=== PATIENT | female | born 1985 | race African-American/Black ===

== ENCOUNTER 2020-06-27 06:01 | Inpatient (IN) ==
[2020-06-27] MEDS ORDERED: ONDANSETRON 4 MG/2 ML VIAL IV PRN ×2 (06:10→10:16)
[2020-06-27] MEDS ORDERED: CITRIC ACID/SODIUM CITRATE 30 ML UDCUP PO ONE (06:14)
[2020-06-27] MEDS ORDERED: ceFAZolin 3,000 MG in SYRINGE 1 EACH IV ONE (06:30)
[2020-06-27] MEDS ORDERED: OXYTOCIN/LR 20 UNIT/1,000 ML BAG IV SCH (06:30)
[2020-06-27] MEDS ORDERED: FAMOTIDINE 20 MG/2 ML VIAL IV SCH (06:30)
[2020-06-27 06:49] LABS: Basophils % 0.2 % (0.0-0.8); Eosinophils # 0.1 10*3/uL (0.0-0.87); Eosinophils % 1.1 % (0.00-10.9); Hematocrit 38.2 VOL% (35.7-47.0); Hemoglobin 12.2 GM/DL (12.0-16.0); Immature Granulocytes % 0.3 %; Immature Granulocytes Absolute 0.03 #; Lymphocytes # 2.1 10*3/uL (1.4-4.0); Lymphocytes % 22.1 % (21.3-54.2); Mean Corpuscular HGB Conc 31.9 GM/DL (32-36); Mean Corpuscular Volume 76.6 FL (87-102); Mean Platelet Volume 10.5 FL (9.6-12.0); Monocytes % 8.7 % (1.7-12.7); Neutrophils % 67.6 % (38.7-73.9); Platelet Count 317 T/CUMM (130-400); Red Blood Count 4.99 MC/CUMM (3.8-5.5); White Blood Count 9.7 T/CUMM (4-12)
[2020-06-27 07:11] LABS: Albumin 2.7 G/DL (3.4-5.0); Bilirubin,Total 0.5 MG/DL (0.2-1.0); Calcium 8.9 MG/DL (8.5-10.1); Total Protein 7.9 G/DL (6.4-8.3)
[2020-06-27] MEDS: LACTATED RINGERS 1,000 ML IV SCH ×3 (07:30→18:10)
[2020-06-27] MEDS ORDERED: miSOPROStoL 200 MCG TABLET ONE (08:09)
[2020-06-27] MEDS ORDERED: OXYTOCIN/LR 20 UNIT/1,000 ML BAG IV ONE ×2 (08:09→10:16)
[2020-06-27] MEDS ORDERED: TRANEXAMIC ACID 1,000 MG/10 ML VIAL ONE (08:09)
[2020-06-27] MEDS ORDERED: SODIUM CHLORIDE 0.9% 0 ML IV ONE (08:10)
[2020-06-27] MEDS ORDERED: METHYLERGONOVINE 0.2 MG/1 ML AMP ONE (08:10)
[2020-06-27] MEDS ORDERED: CARBOPROST TROMETHAMINE 250 MCG/ML AMP IM ONE (08:10)
[2020-06-27] MEDS ORDERED: ONDANSETRON 4 MG/2 ML VIAL ONE ×2 (09:14→09:48)
[2020-06-27] MEDS ORDERED: BUPIVACAINE SPINAL 0.75% 2 ML AMP SPINAL ONE (09:14)
[2020-06-27] MEDS ORDERED: MORPHINE 10 MG/10 ML VIAL ONE (09:15)
[2020-06-27] MEDS ORDERED: fentaNYL 100 MCG/2 ML VIAL ONE (09:15)
[2020-06-27] MEDS ORDERED: PHENYLEPHRINE 1 MG/10 ML SYRINGE IV ONE ×2 (09:43→09:53)
[2020-06-27 10:02] LABS: Cord Arterial Blood HCO3 26.8 MMOL/L
[2020-06-27] MEDS ORDERED: KETOROLAC 30 MG/1 ML VIAL ONE ×2 (10:04→10:18)
[2020-06-27 10:14] LABS: Cord Venous Blood PO2 11.6
[2020-06-27 10:16] LABS: Bilirubin,Urine Negative (Negative); Blood, Urine Negative (Negative); Glucose,Urine (UA) Negative (Negative); Ketones,Urine 5 mg/dL (Negative); Mucus,Urine Occasional /LPF (Occasional); Nitrite,Urine Negative (Negative); Protein,Urine Negative; RBC,Urine 2 /HPF (0-4); Squamous Epithelial Cell,Urine Occasional /HPF (0-10); Urine Appearance CLEAR (Clear); Urine Color Yellow (Yellow); Urine Specific Gravity 1.028 (1.001-1.035); Urine Urobilinogen < 2.0 EU/DL (0.2-1.0); WBC,Urine <1 /HPF (0-6)
[2020-06-27] MEDS ORDERED: MEASLES/MUMPS/RUBELLA VACCINE 0.5 ML VIAL SUBCUT ONE (10:16)
[2020-06-27] MEDS ORDERED: BENZOCAINE 20%/MENTHOL 0.5% SPRAY 56 GM CAN TOP PRN (10:16)
[2020-06-27] MEDS ORDERED: WITCH HAZEL PADS 100/JAR TOP PRN (10:16)
[2020-06-27] MEDS ORDERED: DIPH/TET/ACEL PERT BOOSTER VACCINE 0.5 ML VIAL IM ONE (10:16)
[2020-06-27] MEDS ORDERED: oxyCODONE/ACETAMINOPHEN 5-325 MG TABLET PO PRN (10:16)
[2020-06-27] MEDS ORDERED: RHO(D) IMMUNE GLOBULIN 300 MCG SYRINGE IM ONE (10:16)
[2020-06-27] MEDS ORDERED: ACETAMINOPHEN 325 MG TABLET PO PRN (10:16)
[2020-06-27] MEDS ORDERED: BISACODYL 10 MG SUPP RECTAL PRN (10:16)
[2020-06-27] MEDS ORDERED: HYDROCORTISONE 2.5% RECTAL CREAM 30 GM TUBE TOP PRN (10:16)
[2020-06-27] MEDS ORDERED: LANOLIN 50% CREAM 0.3 OZ TUBE TOP PRN (10:16)
[2020-06-27] MEDS ORDERED: HYDROmorphone 2 MG/1 ML VIAL IV PRN (10:34)
[2020-06-27] MEDS ORDERED: diphenhydrAMINE 50 MG/1 ML VIAL IV PRN (10:34)
[2020-06-27] MEDS ORDERED: hydrOXYzine HCL 25 MG/1 ML VIAL IM PRN (10:34)
[2020-06-27] MEDS: KETOROLAC 30 MG/1 ML VIAL IV SCH ×2 (16:36→22:30)
[2020-06-27] MEDS: ceFAZolin 1,000 MG in SYRINGE 1 EACH IV SCH (16:42)
[2020-06-28] MEDS: DOCUSATE SODIUM 100 MG CAPSULE PO SCH ×3 (02:26→21:38)
[2020-06-28] MEDS: ceFAZolin 1,000 MG in SYRINGE 1 EACH IV SCH (02:27)
[2020-06-28] MEDS: METOPROLOL TARTRATE 25 MG TABLET PO SCH ×3 (02:27→21:38)
[2020-06-28 03:58] LABS: Basophils % 0.2 % (0.0-0.8); Eosinophils # 0.2 10*3/uL (0.0-0.87); Eosinophils % 2.1 % (0.00-10.9); Hematocrit 31.8 VOL% (35.7-47.0); Hemoglobin 9.7 GM/DL (12.0-16.0); Immature Granulocytes % 0.4 %; Immature Granulocytes Absolute 0.04 #; Lymphocytes # 1.3 10*3/uL (1.4-4.0); Lymphocytes % 12.4 % (21.3-54.2); Mean Corpuscular HGB Conc 30.5 GM/DL (32-36); Mean Corpuscular Volume 78.1 FL (87-102); Mean Platelet Volume 10.7 FL (9.6-12.0); Monocytes % 9.6 % (1.7-12.7); Neutrophils % 75.3 % (38.7-73.9); Platelet Count 244 T/CUMM (130-400); Red Blood Count 4.07 MC/CUMM (3.8-5.5); Red Cell Distribution Width 16.9 % (9.3-17.3); White Blood Count 10.3 T/CUMM (4-12)
[2020-06-28] MEDS: KETOROLAC 30 MG/1 ML VIAL IV SCH (04:40)
[2020-06-28] MEDS: IBUPROFEN 800 MG TABLET PO PRN ×2 (07:33→14:35)
[2020-06-28] MEDS: oxyCODONE/ACETAMINOPHEN 5-325 MG TABLET PO PRN ×3 (07:33→21:38)
[2020-06-28] MEDS: MAGNESIUM HYDROXIDE SUSP 30 ML UDCUP PO PRN (09:13)
[2020-06-28] MEDS: SIMETHICONE CHEW 80 MG TABLET PO PRN (09:13)
[2020-06-29] MEDS: oxyCODONE/ACETAMINOPHEN 5-325 MG TABLET PO PRN (03:36)
[2020-06-29 07:32] VITALS: BP 113/59
[2020-06-29] MEDS ORDERED: INFLUENZA VIRUS VACCINE 0.5 ML SYRINGE IM ONE (08:00)
[2020-06-29] MEDS: IBUPROFEN 800 MG TABLET PO PRN (08:10)
[2020-06-29] MEDS: SIMETHICONE CHEW 80 MG TABLET PO PRN (08:11)
[2020-06-29] MEDS: DOCUSATE SODIUM 100 MG CAPSULE PO SCH (08:11)
[2020-06-29] MEDS: MAGNESIUM HYDROXIDE SUSP 30 ML UDCUP PO PRN (08:11)
[2020-06-29] MEDS: METOPROLOL TARTRATE 25 MG TABLET PO SCH (09:53)
== END 2020-06-29 13:05 | disposition home or self-care (01) | DRG 540 ==
LOC: N.LD 06:01 → N.OB 13:24
PROVIDERS: ADMIT Specialist; ATTEND Specialist
PROC: LDCSECT (ICD-10-PCS; 2020-06-27 12:15)

== ENCOUNTER 2020-09-03 10:48 | Observation (INO) ==
[2020-09-03] MEDS ORDERED: ONDANSETRON 4 MG/2 ML VIAL IV PRN (11:57)
[2020-09-03] MEDS ORDERED: PROMETHAZINE 25 MG TABLET PO PRN (11:57)
[2020-09-03] MEDS ORDERED: diphenhydrAMINE CAP 25 MG CAPSULE PO PRN (11:57)
[2020-09-03] MEDS ORDERED: DOCUSATE SODIUM 100 MG CAPSULE PO PRN (11:57)
[2020-09-03] MEDS ORDERED: ACETAMINOPHEN 325 MG TABLET PO PRN (11:57)
[2020-09-03] MEDS ORDERED: ZALEPLON 5 MG CAPSULE PO PRN (11:57)
[2020-09-03] MEDS ORDERED: MAGNESIUM SULF RIDER 2 GM in PREMIX 1 EACH IV PRN (11:57)
[2020-09-03] MEDS ORDERED: guaiFENesin/DM ER 600-30 MG TABLET PO PRN (11:57)
[2020-09-03] MEDS ORDERED: POTASSIUM CHLORIDE 20 MEQ TABLET PO PRN (11:57)
[2020-09-03] MEDS ORDERED: MAGNESIUM SULF RIDER 4 GM in PREMIX 1 EACH IV PRN (11:57)
[2020-09-03] MEDS ORDERED: ALUMINUM/MAGNES/SIMETH MAX STR 30 ML UDCUP PO PRN (11:57)
[2020-09-03] MEDS ORDERED: hydrALAZINE 20 MG/1 ML VIAL IV PRN (11:57)
[2020-09-03] MEDS ORDERED: NITROGLYCERIN SL 0.4 MG TABLET SL PRN (13:29)
[2020-09-03] MEDS: ALBUTEROL/IPRATROPIUM 3 ML NEB RESP TX SCH ×2 (13:32→19:08)
[2020-09-03 13:51] LABS: Troponin I 0.501 NG/ML (0.00-0.045)
[2020-09-03] MEDS: ASPIRIN EC 81 MG TABLET PO SCH (14:23)
[2020-09-03] MEDS: METOPROLOL TARTRATE 25 MG TABLET PO SCH (21:01)
[2020-09-03] MEDS: MORPHINE 4 MG/1 ML VIAL IV PRN (21:02)
[2020-09-04] MEDS: ALBUTEROL/IPRATROPIUM 3 ML NEB RESP TX SCH ×4 (01:02→19:04)
[2020-09-04 06:48] LABS: Basophils % 0.4 % (0.0-0.8); Eosinophils # 0.3 10*3/uL (0.0-0.87); Eosinophils % 4.8 % (0.00-10.9); Hematocrit 40.4 VOL% (35.7-47.0); Immature Granulocytes % 0.4 %; Immature Granulocytes Absolute 0.02 #; Lymphocytes # 2.2 10*3/uL (1.4-4.0); Lymphocytes % 39.5 % (21.3-54.2); Mean Corpuscular HGB Conc 32.2 GM/DL (32-36); Mean Corpuscular Volume 78.8 FL (87-102); Mean Platelet Volume 10.2 FL (9.6-12.0); Monocytes % 10.7 % (1.7-12.7); Neutrophils % 44.2 % (38.7-73.9); Platelet Count 354 T/CUMM (130-400); Red Blood Count 5.13 MC/CUMM (3.8-5.5); Red Cell Distribution Width 14.4 % (9.3-17.3); White Blood Count 5.6 T/CUMM (4-12)
[2020-09-04] MEDS ORDERED: ENOXAPARIN 120 MG/0.8 ML SYRINGE SUBCUT SCH (07:00)
[2020-09-04] MEDS ORDERED: POTASSIUM CHLORIDE RIDER 10 MEQ in PREMIX 1 EACH IV PRN (07:12)
[2020-09-04] MEDS ORDERED: MAGNESIUM SULF RIDER 2 GM in PREMIX 1 EACH IV PRN (07:12)
[2020-09-04 07:15] LABS: Blood Urea Nitrogen 10 MG/DL (7-18); Calcium 8.1 MG/DL (8.5-10.1); Carbon Dioxide 28 MMOL/L (21-32); Estimated Glom Filtration Rate 145 ML/MIN; Glucose 90 MG/DL (74-106); HDL Cholesterol 67 MG/DL (40-60); Osmolality,Calculated 271.8 MOS/KG (273-304); Potassium 3.7 MMOL/L (3.5-5.1); Risk Ratio 2.43; Sodium 137 MMOL/L (136-145); Triglycerides 77 MG/DL (2-150); VLDL CHOLESTEROL 15.4 MG/DL
[2020-09-04 07:16] LABS: Troponin I 0.484 NG/ML (0.00-0.045)
[2020-09-04] MEDS: ASPIRIN EC 81 MG TABLET PO SCH (08:39)
[2020-09-04] MEDS: METOPROLOL TARTRATE 25 MG TABLET PO SCH ×2 (08:39→21:07)
[2020-09-04] MEDS: PANTOPRAZOLE 40 MG TABLET PO SCH (08:40)
[2020-09-04] MEDS ORDERED: HEPARIN/NACL 0.9% 2 UNITS/ML 1,500 ML IV ONE (14:28)
[2020-09-04] MEDS ORDERED: LIDOCAINE 1% 20 ML VIAL ONE (15:50)
[2020-09-04] MEDS ORDERED: fentaNYL 100 MCG/2 ML VIAL ONE (16:20)
[2020-09-04] MEDS ORDERED: MIDAZOLAM 2 MG/2 ML VIAL ONE ×2 (16:20→16:48)
[2020-09-04] MEDS ORDERED: NITROGLYCERIN DRIP 50 MG/250 ML BOTTLE IV ONE (16:20)
[2020-09-04] MEDS ORDERED: VERAPAMIL 5 MG/2 ML VIAL ONE (16:20)
[2020-09-04] MEDS ORDERED: HEPARIN 5,000 UNIT/1 ML VIAL ONE (16:22)
[2020-09-04] MEDS ORDERED: hydrALAZINE 20 MG/1 ML VIAL ONE (17:09)
[2020-09-04] MEDS: MORPHINE 4 MG/1 ML VIAL IV PRN (23:19)
[2020-09-05] MEDS: ALBUTEROL/IPRATROPIUM 3 ML NEB RESP TX SCH ×2 (02:00→13:00)
[2020-09-05 05:35] LABS: Calcium 7.7 MG/DL (8.5-10.1); Osmolality,Calculated 276.5 MOS/KG (273-304); Potassium 3.9 MMOL/L (3.5-5.1)
[2020-09-05] MEDS: PANTOPRAZOLE 40 MG TABLET PO SCH (08:31)
[2020-09-05] MEDS: ASPIRIN EC 81 MG TABLET PO SCH (08:31)
[2020-09-05] MEDS: METOPROLOL TARTRATE 25 MG TABLET PO SCH (08:32)
[2020-09-05] MEDS ORDERED: ISOSORBIDE MONONITRATE 30 MG TABLET PO SCH (10:30)
[2020-09-05 12:30] VITALS: BP 106/62
[2020-09-05] MEDS ORDERED: lisinopriL 2.5 MG TABLET PO SCH (12:30)
[2020-09-05] MEDS ORDERED: ATORVASTATIN 40 MG TABLET PO SCH (21:00)
== END 2020-09-05 15:14 | disposition home or self-care (01) ==
LOC: N.TELES
PROVIDERS: ADMIT Internal Medicine Cardiovascular Disease; ATTEND Internal Medicine Cardiovascular Disease
PROC: CLCCHCL (ICD-10-PCS; 2020-09-04 14:15)